=== PATIENT | female | born 1945 | race Caucasian/White ===

== ENCOUNTER 2021-01-02 16:42 | Inpatient (IN) | payer MEDICARE ==
[~2021-01-02] VITALS: Ht 165.1 cm; Wt 45.2 kg
--- NOTE | 2021-01-02 17:15 | NUR ---
PT BIB [facility]. PER EMS PT HAD MGLF, LEFT KNEE PAIN. PT IS NOT ABLE TO STAND. PT RESTING IN [facility], MONITORING IN PLACE, NADN AT THIS TIME, WCTM. AWAITING EDMD EVAL.
[2021-01-02] MEDS ORDERED: MORPHINE SULFATE 4 MG/ML, 1ML ONE (17:29)
[2021-01-02] MEDS ORDERED: ONDANSETRON 2MG/ML, 2ML ONE (17:29)
[2021-01-02] MEDS ORDERED: MORPHINE SULFATE 4 MG/ML, 1ML IVPush PRN (17:30)
[2021-01-02] MEDS ORDERED: ONDANSETRON 2MG/ML, 2ML IVPush ONE (17:30)
[2021-01-02 17:34] LABS: BASOPHILS % (AUTO) 0 % (0-1); EOSINOPHILS % (AUTO) 0 % (1-7); LYMPHOCYTES % (AUTO) 3 % (22-44); MEAN CORPUSCULAR HEMOGLOBIN 31.2 pg (27.0-34.8); MEAN CORPUSCULAR HGB CONC 33.1 g/dL (32.4-35.8); MEAN PLATELET VOLUME 7.3 fL (7.4-10.4); MONOCYTES % (AUTO) 5 % (2-9); NEUTROPHILS % (AUTO) 92 % (42-75); PLATELET COUNT 287 x10^3/uL (130-400); RED BLOOD COUNT 3.64 x10^6/uL (3.82-5.3); RED CELL DISTRIBUTION WIDTH 13.6 % (9.6-15.2)
[2021-01-02 17:43] LABS: ALBUMIN 3.5 g/dL (3.4-5.0); ANION GAP 4 mmol/L (5-15); CALCIUM 9.5 mg/dL (8.5-10.1); CHLORIDE 88 mmol/L (98-107); CREATININE 0.26 mg/dL (0.55-1.02)
[2021-01-02] MEDS ORDERED: ATROPINE SYRINGE 0.1 MG/ML, 10ML ONE (19:57)
[2021-01-02] MEDS ORDERED: ATROPINE 0.4 MG/ML, 1ML IVPush ONE (20:00)
--- NOTE | 2021-01-02 20:08 | NUR ---
PT AND FAMILY UPDATED ON PLAN TO ADMIT HER. PT AND FAMILY AGREEABLE TO PLAN. PT RESTING IN GURNEY, MONITORING IN PLACE, NADN AT THIS TIME, FAMILY AT BEDSIDE, SHREE.
[2021-01-02] MEDS ORDERED: POLYETHYLENE GLYCOL 17 GM PACKET PO PRN (20:30)
[2021-01-02] MEDS ORDERED: ACETAMINOPHEN 325 MG TABLET PO PRN (20:30)
[2021-01-02] MEDS ORDERED: ONDANSETRON 2MG/ML, 2ML IVPush PRN (20:30)
[2021-01-02] MEDS ORDERED: LABETALOL 5MG/ML, 20ML IVPush PRN (20:30)
[2021-01-02] MEDS ORDERED: HYDROmorphone 2 MG/ML, 1ML IVPush PRN (20:30)
[2021-01-02] MEDS: KETOROLAC 30 MG/1 ML IV PRN (22:05)
[2021-01-02 22:07] VITALS: BP 166/95
[2021-01-02 22:20] VITALS: BP 166/95
[2021-01-03 01:53] VITALS: BP 145/77
[2021-01-03 06:02] LABS: BASOPHILS % (AUTO) 0 % (0-1); EOSINOPHILS % (AUTO) 1 % (1-7); LYMPHOCYTES % (AUTO) 6 % (22-44); MEAN CORPUSCULAR HEMOGLOBIN 32.4 pg (27.0-34.8); MEAN CORPUSCULAR HGB CONC 34.1 g/dL (32.4-35.8); MEAN PLATELET VOLUME 7.8 fL (7.4-10.4); MONOCYTES % (AUTO) 10 % (2-9); NEUTROPHILS % (AUTO) 82 % (42-75); PLATELET COUNT 238 x10^3/uL (130-400); RED BLOOD COUNT 3.06 x10^6/uL (3.82-5.3)
[2021-01-03 06:12] LABS: CALCIUM 9.4 mg/dL (8.5-10.1); CREATININE 0.21 mg/dL (0.55-1.02)
[2021-01-03 06:20] LABS: ANION GAP 4 mmol/L (5-15); CHLORIDE 88 mmol/L (98-107)
[2021-01-03 07:30] VITALS: BP 134/79
[2021-01-03] MEDS ORDERED: OXYcodone IR 5MG TABLET PO PRN (08:00)
[2021-01-03] MEDS ORDERED: ALBUTEROL/IPRATROPIUM 2.5MG/0.5MG, 3 ML HHN SCH (09:00)
[2021-01-03] MEDS: BUDESONIDE 0.5 MG/2 ML INHA INH SCH ×2 (09:00→21:00)
[2021-01-03] MEDS ORDERED: BUDE10.2 PO (10:02)
[2021-01-03] MEDS ORDERED: LEVO50CA4 PO (10:02)
[2021-01-03] MEDS ORDERED: LOSA100T14 PO (10:02)
[2021-01-03] MEDS ORDERED: POTA20TA91 PO (10:02)
[2021-01-03] MEDS ORDERED: ALBU90AE PO (10:06)
[2021-01-03] MEDS ORDERED: PRED5TAB19 PO (10:06)
[2021-01-03] MEDS ORDERED: TIOT18CA INH (10:06)
[2021-01-03] MEDS ORDERED: CHOL10003 PO (10:07)
[2021-01-03] MEDS ORDERED: ALBUTEROL SULFATE 2.5MG/0.5ML NPPB PRN (11:00)
[2021-01-03] MEDS ORDERED: TEMPLATE NON-FORMULARY MED. (Budesonide/Formoterol Fumarate (Symbicort 160-4.5 Mcg Inhaler PO SCH (11:00)
[2021-01-03] MEDS ORDERED: TIOTROPIUM BROMIDE 18 MCG/INH INH SCH (11:00)
[2021-01-03] MEDS: ALBUTEROL/IPRATROPIUM 2.5MG/0.5MG, 3 ML NPPB SCH ×3 (11:30→22:38)
[2021-01-03] MEDS: LEVOTHYROXINE 50 MCG TABLET PO SCH (11:37)
[2021-01-03] MEDS: LOSARTAN 100 MG TAB PO SCH (11:37)
[2021-01-03 15:50] VITALS: BP 122/77
[2021-01-03] MEDS: KETOROLAC 30 MG/1 ML IV PRN (17:07)
[2021-01-03] MEDS: CHOLECALCIFEROL 1,000 UNIT TABLET PO SCH (20:24)
[2021-01-03 21:23] VITALS: BP 115/69
[2021-01-04 01:01] VITALS: BP 128/73
[2021-01-04] MEDS: KETOROLAC 30 MG/1 ML IV PRN ×3 (04:33→21:20)
[2021-01-04] MEDS: LEVOTHYROXINE 50 MCG TABLET PO SCH (06:02)
[2021-01-04] MEDS: ALBUTEROL/IPRATROPIUM 2.5MG/0.5MG, 3 ML NPPB SCH ×3 (07:10→20:45)
[2021-01-04] MEDS: BUDESONIDE 0.5 MG/2 ML INHA INH SCH ×2 (07:10→20:45)
[2021-01-04 07:27] VITALS: BP 177/75
[2021-01-04] MEDS: LOSARTAN 100 MG TAB PO SCH (08:13)
[2021-01-04] MEDS: CHOLECALCIFEROL 1,000 UNIT TABLET PO SCH (08:14)
[2021-01-04 10:13] VITALS: BP 137/78
[2021-01-04 14:10] VITALS: BP 130/84
[2021-01-04] MEDS ORDERED: BISACODYL 10 MG SUPP PR PRN (16:00)
[2021-01-04 20:19] VITALS: BP 148/81
[2021-01-05 02:13] VITALS: BP 149/80
[2021-01-05] MEDS: ALBUTEROL/IPRATROPIUM 2.5MG/0.5MG, 3 ML NPPB SCH ×4 (03:00→20:15)
[2021-01-05] MEDS: LEVOTHYROXINE 50 MCG TABLET PO SCH (05:23)
[2021-01-05 07:30] VITALS: BP 158/81
[2021-01-05] MEDS: BUDESONIDE 0.5 MG/2 ML INHA INH SCH ×2 (07:35→20:15)
[2021-01-05] MEDS: LOSARTAN 100 MG TAB PO SCH (08:01)
[2021-01-05] MEDS: CHOLECALCIFEROL 1,000 UNIT TABLET PO SCH (08:01)
[2021-01-05] MEDS: KETOROLAC 30 MG/1 ML IV PRN ×2 (08:01→19:37)
[2021-01-05 13:50] VITALS: BP 129/78
[2021-01-05 18:39] VITALS: BP 152/88
[2021-01-06 01:03] VITALS: BP 127/66
[2021-01-06] MEDS: ALBUTEROL/IPRATROPIUM 2.5MG/0.5MG, 3 ML NPPB SCH ×2 (05:34→07:48)
[2021-01-06] MEDS: LEVOTHYROXINE 50 MCG TABLET PO SCH (05:35)
[2021-01-06] MEDS: BUDESONIDE 0.5 MG/2 ML INHA INH SCH (07:48)
[2021-01-06 08:00] VITALS: BP 188/94
[2021-01-06] MEDS: LOSARTAN 100 MG TAB PO SCH (08:12)
[2021-01-06] MEDS: CHOLECALCIFEROL 1,000 UNIT TABLET PO SCH (08:12)
[2021-01-06] MEDS: KETOROLAC 30 MG/1 ML IV PRN (09:26)
[2021-01-06] MEDS ORDERED: ACET325T26 PO (11:44)
[2021-01-06] MEDS ORDERED: ETOD200C2 PO (11:44)
[2021-01-06] MEDS ORDERED: POLY17PO5 PO (11:44)
[2021-01-07] MEDS ORDERED: ETODOLAC 200 MG CAPSULE PO PRN (21:00)
== END 2021-01-06 13:41 | DRG 563 ==
LOC: ED 19:07 → EDIP 19:58 → 4NE 21:40
PROVIDERS: ADMIT Internal Medicine; ATTEND Hospitalist
DX: S82.142A Displaced bicondylar fracture of left tibia, initial encounter for closed fracture (principal); S82.141A Displaced bicondylar fracture of right tibia, initial encounter for closed fracture; E44.0 Moderate protein-calorie malnutrition; Z68.1 Body mass index [BMI] 19.9 or less, adult; J96.11 Chronic respiratory failure with hypoxia; E87.1 Hypo-osmolality and hyponatremia; Z66 Do not resuscitate; S82.831A Other fracture of upper and lower end of right fibula, initial encounter for closed fracture; E03.9 Hypothyroidism, unspecified; W18.39XA Other fall on same level, initial encounter; S82.832A Other fracture of upper and lower end of left fibula, initial encounter for closed fracture; J44.9 Chronic obstructive pulmonary disease, unspecified; M81.0 Age-related osteoporosis without current pathological fracture; I10 Essential (primary) hypertension; Z79.52 Long term (current) use of systemic steroids; Y93.89 Activity, other specified; Y92.89 Other specified places as the place of occurrence of the external cause; Y99.8 Other external cause status; Z91.041 Radiographic dye allergy status; Z91.018 Allergy to other foods; Z88.8 Allergy status to other drugs, medicaments and biological substances
CPT/HCPCS: 36415; 80048; 82040; 85025; 93005; 94640; 96374; 96375; 99285; G0378; J1885; J2405; J7626; J2270; J7512